=== PATIENT | female | born 1995 | race Caucasian/White ===

== ENCOUNTER 2017-01-30 10:53 | Inpatient (IN) | payer OTHER ==
[2017-01-30 12:14] LABS: Hematocrit 38 % (35-47); Hemoglobin 12.8 g/dl (12.0-16.0); Mean Corpuscular HGB Conc 33 g/dl (31-36); Mean Corpuscular Hemoglobin 29 pg (27-31); Mean Corpuscular Volume 86 fL (80-97); Mean Platelet Volume 9 um3 (7.4-10.4); Red Blood Count 4.47 10^6/ul (4.0-5.4); Red Cell Distribution Width 12 % (10.5-15); White Blood Count 7.5 10^3/ul (3.5-10.8)
[2017-01-30 12:16] LABS: Urine Bilirubin Negative (Negative); Urine Glucose Negative (Negative); Urine Nitrite Negative (Negative)
[2017-01-30 12:25] LABS: ALT 8 U/L (7-52); AST 15 U/L (13-39); Albumin 4.1 g/dL (3.2-5.2); Alkaline Phosphatase 41 U/L (34-104); Anion Gap 4 mmol/L (2-11); BUN/Creatinine Ratio 17.4 (8-20); Blood Urea Nitrogen 12 mg/dL (6-24); CO2 Carbon Dioxide 27 mmol/L (22-32); Calcium 9.3 mg/dL (8.6-10.3); Chloride 105 mmol/L (101-111); EGFR African American 138.1 (>60); EGFR Non-African American 107.4 (>60); Globulin 2.6 g/dL (2-4); Glucose 94 mg/dL (70-100); Potassium 3.8 mmol/L (3.5-5.0); Sodium 136 mmol/L (133-145); Total Protein 6.7 g/dL (6.4-8.9)
[2017-01-30 12:30] LABS: Benzodiazepine Urine Screen None Detected (None Detect)
[2017-01-30 12:45] LABS: Acetaminophen < 15 mcg/mL; Alcohol < 10 mg/dL (<10); Salicylate < 2.50 mg/dL (<30)
[2017-01-30 12:53] LABS: TSH (Thyroid Stimulating Horm) 1.07 mcIU/mL (0.34-5.60)
--- NOTE | 2017-01-31 16:49 | HP ---
DATE OF ADMISSION: 01/30/2017. DATE OF EVALUATION: 01/31/2017. IDENTIFICATION: Ms. 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 HISTORY OF PRESENT ILLNESS: Information was obtained by interview of the patient and review of the electronic medical record. Jason reports that she has had depressive illness with suicidal ideation since the fifth grade and almost every day of her life has thought about suicide. She had on a walk-in meeting with providers at [facility] stated suicidal ideation to jump from a bridge, prompting being brought in on a 941 basis for evaluation in the emergency department. She was deemed as in need of psychiatric hospitalization for safety, assessment and treatment and has been admitted on an involuntary 939 status. She had been having suicidal thoughts of walking into traffic. She tells me that just a short time ago, perhaps a couple of weeks, she had climbed down from a bridge into oncoming traffic on a busy road [place] highway that goes from the [facility] to the [place] and had been walking through traffic and could have been killed by her actions. She was not discovered and she did not come in for care on that occasion. She has been under the care of counselor Gavi Hill at [facility], but has not seen Gavi since August. She had been on Lamictal 100 mg daily on prescription from her psychiatrist in [place], [place], Dr. Pantera Koehler. She has lapsed from taking Lamictal for over a week however, so will not be resuming that dose here out of concern for rash. She reports past trials of Prozac, Lexapro, Wellbutrin, Zoloft, Lamictal, and Effexor. She reports that Effexor and Lexapro did not help, that she got a rash from Wellbutrin, that she had serotonin symptom at 100 mg dosing of Zoloft , and that she got the shakes at about a 40 mg dose of the Prozac. Jason is not very hopeful for deriving any benefit from her stay here. During her evaluation yesterday in the flex space, she stated that she felt she just needed to go home and did not think that it was helpful to be here and that two days was not going to help how she was feeling, apparently referencing roughly the length of stay for her last hospitalization here. She had stated that she felt like she might need something long-term and that her parents were looking into a more long-term placement for her down near [facility]. She has stated that it is her plan to withdraw from school and to pursue treatment for her mental illness. She does hope to return to [place] after she is feeling better. On review of symptoms of depression, the patient reports "I'm very sad, but I feel fine." She does endorse depression and anhedonia, feelings of worthlessness and guilt. She reports that her sleep has been okay, has improved a bit this semester to about five hours per night now, had been less than that previously. She reports that her energy is "kind of in flux." She reports that it will go in about four day cycles, but does not covary with hours of sleep. She reports no change in her appetite or weight. She reports that her concentration and decision making are "horrible." She endorses feeling more hopeless than hopeful. She reports "I feel like I should right now" when asked about suicidal ideation. She denies any history of euphoria or irritability with talking fast, racing thoughts, distractibility, or other symptoms of roberto. She reports anxiety, four or five out of ten on most days with panic attacks occurring once every few weeks, lasting about an hour, with shortness of breath, being flushed, red hands and lips, feeling a catch in her throat, and feeling like she might go crazy. She denies ever any history of trauma. She denies any history of obsessive or compulsive disorder symptoms besides about two to three times sometimes having to check that a door is locked, that she has her keys, that the lights are off, that sort of thing, but not severely disruptive of her usual behaviors. She denies any history of psychosis. MENTAL STATUS EXAMINATION: This is a young woman with adequate grooming and hygiene, who makes good eye contact and has speech of regular rate, rhythm and volume. She is well-related and well-engaged in the interview. She reports her mood as "very sad, but I feel fine." She does look a bit down, but not severely depressed judging by her affect. She denies any auditory or visual hallucinations or paranoid ideation now or ever before. She denies currently any suicidal ideation with intent or plan, but does report having daily thoughts about suicide. She denies ever any homicidal ideation. Her insight and judgment are fair. Her impulse control is intact. She shows no gross deficits of memory, cognition or attention and does appear to be of above average intelligence as evidenced by her enrollment in the student body at [employer]3]. PAST PSYCHIATRIC HISTORY: The patient reports that her only prior psychiatric hospitalization was here last year. She reports that she has not been following up with care since August with her therapist Gavi Hill at [facility], but had been seeing Gavi for about a year before that. She reports that her current psychiatric prescriber is Dr. Pantera Koehler of [place], [place]. She feels good about the work that she does with him, feels like he is a competent provider. She reports historical diagnoses of major depressive disorder, generalized anxiety disorder, ADHD, and bipolar affective disorder. Medication trials were reviewed above in the history of present illness. She does report a single prior suicide attempt in high school by overdose. She feels like this was not a serious attempt, that she only took a few medications , vomited them up and was not at great risk of dying from what she did. She reports that her episode cutting herself earlier at about the age of 14, reported elsewhere in the EMR as a suicide attempt, was not with intent to , but was just an instance of self-harm for its own sake. She reported to me that she has been cutting herself up until about a week ago, when she did it with a razor. Elsewhere in the EMR it is reported that she cut herself on the day prior to admission. PAST MEDICAL HISTORY: Denies any. Denies any history of seizures, syncopal episodes or cardiac problems. She does report a concussion at the age of [age] when she was knocked over by the family's Labrador Retriever. Last menstrual period was about three weeks ago. She does not use a control method as she does not have sex with men, hence she also does not believe that she could possibly be . PAST SURGICAL HISTORY: Denies any. MEDICATIONS AT ADMISSION: 1. Lamictal 100 mg daily, but has not been compliant with this medication for over 1 week. 2. Adderall 20 mg daily. ALLERGIES: RASH TO WELLBUTRIN, PENICILLIN RASH. FAMILY PSYCHIATRIC HISTORY: The patient reports that her mother has anxiety and the patient believes that her mother also has bipolar affective disorder. She has a sister who has been diagnosed with bipolar affective disorder and has attempted suicide by overdose. She reports that there are other members of the family with depression, anxiety, and alcohol abuse issues. SUBSTANCE ABUSE HISTORY: The patient denies any abuse of alcohol, only drinking socially, at most perhaps five drinks on a very wild night in a social setting. She reports using marijuana occasionally, perhaps once a week. She denies any abuse of any other illicit substances. Explicitly denies any abuse of cocaine, heroin, methamphetamine, mushrooms, or LSD. She denies ever any abuse of drugs through an IV route or any abuse of drugs by inhalation. She denies any abuse of either over- the-counter or prescription medications. She reports that she does not drink much caffeine, that today was kind of a heavy drinking day with two cups of coffee. She is not a smoker of tobacco. SOCIAL HISTORY: The patient grew up all over the country and the [place] as part of a family. Her father is a Dental Hygiene Professor in the [employer] working in [place]. She has been in [facility], [place], and [place], [place]. She met all her developmental milestones. She did well in school. Her parents are together. She has a younger brother and sister. She identifies as lesbian. LEGAL HISTORY: Denies any. HISTORY OF VIOLENCE: Denies any. PHYSICAL EXAMINATION The patient was examined in the emergency department. All organ systems were found to be within normal limits aside from abrasions on the left thigh and arm from her self-cutting. She denied to them any active symptoms. On my review of symptoms, she denies any chest pain, shortness of breath, nausea, vomiting, constipation, diarrhea, pain, rash, dizziness, or blurred vision. She denies having any other symptoms I have not asked about. Given her negative review of symptoms and her normal physical examination in the emergency department, it is reasonable of her to decline repeat physical examination as she has done and so I will not re-examine her per her request. VITAL SIGNS: Temperature 98.9, pulse 82, respiratory rate 16, saturating 100 percent oxygen on room air with a blood pressure of 114/65. LABORATORY VALUES: CBC with differential entirely within normal limits aside from one single excursion of lymphocyte percentage down to a low value at 23.1. Comprehensive metabolic panel entirely within normal limits with a negative test. Urinalysis entirely normal and toxicology screen detecting only cannabinoids. No other substances found in urine or serum. ASSESSMENT AND PLAN: Jason is a 21-year-old woman who has been admitted psychiatrically once before to this unit, and that is her only prior psychiatric admission. She comes to us on this occasion with report of ongoing suicidal ideation and is seeking referral through help from her family into longer term care in a facility nearer to her home in [facility]. She has agreed to a trial of Cymbalta, stating that this had been the plan of her psychiatrist in [place] should she fail the Lamictal. We will start Cymbalta 30 mg. We will be gathering collateral from Dr. Koehler and others who have been providing care to her and from her family. We will be encouraging her to make use of the therapeutic milieu and groups and notably I did ask her to leave a group to come to meet with me for the intake interview. Aftercare may well be referral to a long-term program as per her stated a preference. DIAGNOSES: Major depressive disorder, recurrent, severe, without psychotic features; generalized anxiety disorder; historical diagnosis of ADHD; rule out bipolar affective disorder. [id number]/[facility] #: [id number] MTDSydnee
[2017-02-01] MEDS: DULoxetine DR CAP* 30 MG CAP.DR PO SCH (10:13)
[2017-02-01] MEDS ORDERED: Nicotine Inhaler* 10 MG AMP INH PRN (11:00)
--- NOTE | 2017-02-01 15:28 | PN ---
Subjective - Subjective Service Type: 41963 Hosp care 15 min low complexity Subjective: Jason reports nausea with first dose Cymbalta, but would like to continue in hopes nausea will wane. She reports continued low mood with SI, but is able to laugh about it. She will ask her family to convey their research about programs near [place] to Ms Boles. She requests q30 checks, computer privileges, and staff pass. Other than nausea, she has no physical complaints. Objective - Appearance Appearance: Healthy Appearing Dysmorphic Features: No Hygiene: Normal Grooming: Well Kept - Behavior Psychomotor Activities: Normal Exhibits Abnormal Movement: No - Attitude and Relatedness Attitude and Relatedness: Well Related Eye Contact: Good - Speech Quality: Unpressured Latencies: Normal Quantity: Appropriate - Mood Patient's Decription of Mood: "Sad" - Affect Observed Affect: Fair Affect Consistent with: Dysphoria - mild - Thought Process Patient's Thought Process: Coherent, Goal Directed Thought Content: Yes Passive Wish, Yes Suicidal Planning, No Homicidal Ideation, No Paranoid Ideation - Sensorium Experiencing Hallucinations: No, Sensorium is Clear Type of Hallucinations: Visual: No, Auditory: No, Command: No - Level of Consciousness Level of Consciousness: Alert Orientation: Yes Intact, Yes Orientated to Time, Yes Orientated to Place, Yes Orientated to Person - Impulse Control Impulse Control: Intact - Insight and Judgement Insight and Judgement: Fair - Group Participation Particating in Group Activities: Yes - Medication Management Medication Management Adherence: Yes Assessment - Assessment Merits Inpatient Hospitalization: For Immediate Safety, For Stabilization, For Discharge Planning, Pending Safe DC Plan Inpatient DSM-IV Dx: Major depressive disorder, recurrent, severe, without psychotic features; generalized anxiety disorder; historical diagnosis of ADHD; rule out bipolar affective disorder. Clinical Impression: Full day 1 on unit, 3..17: Jason is a 21-year-old woman who has been admitted psychiatrically once before to this unit, and that is her only prior psychiatric admission. She comes to us on this occasion with report of ongoing suicidal ideation and is seeking referral through help from her family into longer term care in a facility nearer to her home in [facility]. She has agreed to a trial of Cymbalta, stating that this had been the plan of her psychiatrist in [place] should she fail the Lamictal. We will start Cymbalta 30 mg. We will be gathering collateral from Dr. Koehler and others who have been providing care to her and from her family. We will be encouraging her to make use of the therapeutic milieu and groups and notably I did ask her to leave a group to come to meet with me for the intake interview. Aftercare may well be referral to a long- term program as per her stated a preference. Day 2, 02.01.17: Continued symptomatic. Await word from parents re treatment options near them. Plan - Plan Treatment Plan: Name: JASON MCKEON Birthdate: 1995 [id number] Continue Cymbalta 30 mg. Encourage groups, milieu. Gather collateral. Medications: Current Medications Duloxetine HCl (Cymbalta Cap*) 30 mg PO DAILY TAMARA Last Admin: 02/01/17 10:13 Dose: 30 mg Nicotine (Nicotine Inhaler*) 10 mg INH Q2H PRN PRN Reason: CRAVING - Discharge Plan Discharge Plan: Consider Longer Term Tx
[2017-02-02] MEDS: DULoxetine DR CAP* 30 MG CAP.DR PO SCH (09:22)
--- NOTE | 2017-02-02 14:59 | PN ---
Subjective - Subjective Service Type: 35326 Hosp care 15 min low complexity Objective - Appearance Appearance: Healthy Appearing Dysmorphic Features: No Hygiene: Normal Grooming: Well Kept - Behavior Psychomotor Activities: Normal - Attitude and Relatedness Attitude and Relatedness: Cooperative Eye Contact: Fair - Speech Quality: Unpressured Latencies: Normal Quantity: Appropriate - Mood Patient's Decription of Mood: "Sad" - Affect Observed Affect: Depressed Affect Consistent with: Dysphoria - Thought Process Patient's Thought Process: Coherent, Goal Directed Thought Content: Yes Passive Wish, No Suicidal Planning, No Homicidal Ideation, No Paranoid Ideation - Sensorium Experiencing Hallucinations: No, Sensorium is Clear Type of Hallucinations: Visual: No, Auditory: No, Command: No - Level of Consciousness Level of Consciousness: Alert Orientation: Yes Intact, Yes Orientated to Time, Yes Orientated to Place, Yes Orientated to Person - Impulse Control Impulse Control: Intact - Insight and Judgement Insight and Judgement: Fair - Group Participation Particating in Group Activities: Yes - Medication Management Medication Management Adherence: Yes Assessment - Assessment Merits Inpatient Hospitalization: For Immediate Safety, For Stabilization, To Initiate Treatment, For Discharge Planning, Pending Safe DC Plan Inpatient DSM-IV Dx: Major depressive disorder, recurrent, severe, without psychotic features; generalized anxiety disorder; historical diagnosis of ADHD; rule out bipolar affective disorder. Clinical Impression: Full day 1 on unit, 01.31.17: Jason is a 21-year-old woman who has been admitted psychiatrically once before to this unit, and that is her only prior psychiatric admission. She comes to us on this occasion with report of ongoing suicidal ideation and is seeking referral through help from her family into longer term care in a facility nearer to her home in [facility]. She has agreed to a trial of Cymbalta, stating that this had been the plan of her psychiatrist in [place] should she fail the Lamictal. We will start Cymbalta 30 mg. We will be gathering collateral from Dr. Koehler and others who have been providing care to her and from her family. We will be encouraging her to make use of the therapeutic milieu and groups and notably I did ask her to leave a group to come to meet with me for the intake interview. Aftercare may well be referral to a long- term program as per her stated a preference. Day 2, 17: Continued symptomatic. Await word from parents re treatment options near them. Day 3, 02.02.17: Dr Koehler reports he is disappointed she did not stick with the Lamictal, as he feels antidepressant treamtnt options have been exhausted. He feels [facility] and TMS (with a different agency) in [facility], fundable by her insurance, might be a reasonable next step of care. Awaiting coordination with her parents about this treatment option. She remains chronically depressed and suicidal. Plan - Plan Treatment Plan: Name: JASON MCKEON Birthdate: 1995 [id number] Continue Cymbalta 30 mg. Encourage groups, milieu. Gather collateral and discuss disposition options with her parents. Medications: Current Medications Duloxetine HCl (Cymbalta Cap*) 30 mg PO DAILY TAMARA Last Admin: 02/02/17 09:22 Dose: 30 mg Nicotine (Nicotine Inhaler*) 10 mg INH Q2H PRN PRN Reason: CRAVING - Discharge Plan Discharge Plan: Outpatient Follow Up - in IOP
[2017-02-03] MEDS: DULoxetine DR CAP* 30 MG CAP.DR PO SCH (09:01)
--- NOTE | 2017-02-03 09:19 | ED ---
Ama Eduardo Alok, scribed for Alis Ordaz MD on 01/30/17 at 1226 . Psychiatric Complaint - HPI Summary HPI Summary: 21 y/o female presents to the ED with c/o stress and depression while at school. Pt states she has had depression for the last year but has worsened for the last 6 days PMHX includes depression, ADHD, and anxiety. Pt takes Lamictal for depression. Pt confirms occasional ETOH use but has no other substance abuse issues. Pt states she also has SI with plan as well as a history of self- cutting. - History Of Current Complaint Chief Complaint: EDMentalHealth Time Seen by Provider: 01/30/17 12:01 Hx Obtained From: Patient ?: No Onset/Duration: Gradual Onset, Lasting Weeks, Still Present Timing: Constant Severity Initially: Moderate Severity Currently: Moderate Character: Depressed, Anxious Aggravating Factor(s): Nothing Alleviating Factor(s): Nothing Associated Signs And Symptoms: Positive: Negative Has Suicidal: Reports: Thoughts, With A Plan - Allergies/Home Medications Allergies/Adverse Reactions: Allergies Allergy/AdvReac Type Severity Reaction Status Date / Time Bupropion Allergy Unknown Verified 01/30/17 11:47 [From Wellbutrin XL] Reaction Details Penicillins Allergy Rash Verified 01/30/17 11:46 Home Medications: Home Medications Amphetamine MIXED SALTS TAB* [Adderall TAB*] 10 mg PO DAILY 01/30/17 [History Confirmed 01/30/17] Amphetamine/Dextroamph ER(NF) [Adderal XR (NF)] 20 mg PO DAILY 01/30/17 [ History Confirmed 01/30/17] lamoTRIgine TAB(*) [LaMICtal TAB(*)] 100 mg PO DAILY 01/30/17 [History Confirmed 01/30/17] PMH/Surg Hx/FS Hx/Imm Hx Sensory History: Reports: Hx Contacts or Glasses Opthamlomology History: Reports: Hx Contacts or Glasses Psychiatric History: Reports: Hx Anxiety, Hx Attention Deficit Hyperactivity Disorder, Hx Depression, Hx Community Mental Health Tx Denies: Hx Eating Disorder, Hx of Violent Episodes Against Others Infectious Disease History: No Infectious Disease History: Denies: Traveled Outside the [place] in Last 30 Days - Family History Known Family History: Positive: Other - No - Bipolar disorder - Social History Occupation: Student Alcohol Use: None Substance Use Type: Reports: Marijuana Substance Use Comment - Amount & Last Used: tested positive for cannibinoids Smoking Status (MU): Never Smoked Tobacco Review of Systems Negative: Fever Positive: Anxious, Depressed All Other Systems Reviewed And Are Negative: Yes Physical Exam Triage Information Reviewed: Yes Vital Signs On Initial Exam: Initial Vitals Temp Pulse Resp BP Pulse Ox 99.5 F 80 20 115/67 100 01/30/17 11:25 01/30/17 11:25 01/30/17 11:25 01/30/17 11:25 01/30/17 11:25 Vital Signs Reviewed: Yes Appearance: Positive: Well-Appearing, No Pain Distress Skin: Positive: Warm, Skin Color Reflects Adequate Perfusion, Dry, Other - Abrasions Left Arm and Left Inner Thigh Eyes: Positive: EOMI, ROSSANA ENT: Positive: Pharynx normal, TMs normal Neck: Positive: Supple, Nontender Respiratory/Lung Sounds: Positive: Clear to Auscultation, Breath Sounds Present. Negative: Rales, Rhonchi, Wheezes Cardiovascular: Positive: RRR. Negative: Murmur, Rub, Other - Gallops Abdomen Description: Positive: Nontender, Soft Bowel Sounds: Positive: Present Musculoskeletal: Positive: Strength/ROM Intact. Negative: Edema Left, Edema Right Neurological: Positive: Sensory/Motor Intact, Alert, Oriented to Person Place, Time, CN Intact II-III Psychiatric: Positive: Affect/Mood Appropriate Diagnostics - Vital Signs Vital Signs Temp Pulse Resp BP Pulse Ox 01/30/17 11:25 99.5 F 80 20 115/67 100 - Laboratory Lab Results: Lab Results 01/30/17 Range/Units 11:39 WBC 7.5 (3.5-10.8) 10^3/ul RBC 4.47 (4.0-5.4) 10^6/ul Hgb 12.8 (12.0-16.0) g/dl Hct 38 (35-47) % MCV 86 (80-97) fL MCH 29 (27-31) pg MCHC 33 (31-36) g/dl RDW 12 (10.5-15) % Plt Count 322 (150-450) 10^3/ul MPV 9 (7.4-10.4) um3 Neut % (Auto) 68.9 (38-83) % Lymph % (Auto) 23.1 L (25-47) % [place] % (Auto) 6.8 (1-9) % Eos % (Auto) 0.8 (0-6) % Baso % (Auto) 0.4 (0-2) % Absolute Neuts (auto) 5.1 (1.5-7.7) 10^3/ul Absolute Lymphs (auto) 1.7 (1.0-4.8) 10^3/ul Absolute Monos (auto) 0.5 (0-0.8) 10^3/ul Absolute Eos (auto) 0.1 (0-0.6) 10^3/ul Absolute Basos (auto) 0 (0-0.2) 10^3/ul Absolute Nucleated RBC 0 10^3/ul Nucleated RBC % 0 Result Diagrams: 01/30/17 11:39 01/30/17 11:39 Lab Statement: Any lab studies that have been ordered have been reviewed, and results considered in the medical decision making process. Course/Dx - Differential Dx/Clinical Impression Provider Diagnosis: Major depressive disorder, severe Discharge - Discharge Plan Condition: Stable Disposition: ADMITTED TO [facility] documentation as recorded by the Ama chávez Alok accurately reflects the service I personally performed and the decisions made by , Alis Ordaz MD.
--- NOTE | 2017-02-03 14:10 | PN ---
[facility]: Group Therapy Note - Service Type Service Type: 07433 Group Psychotherapy - Cognitive Behavioral Group Therapy ( CBT):Patient was attentive and participatory in CBT programming this morning, and remained in good behavioral control. Patient expressed positive insights regarding relevant treatment interventions and goals.
--- NOTE | 2017-02-03 16:51 | PN ---
Subjective - Subjective Service Type: 86053 Hosp care 15 min low complexity Subjective: Jason reports continued depression and SI. She is looking forward to discharge either extended care at a unit connected with [facility], or a program in [facility]. She reports worsened symptoms of depression around this time of onset of menses. She reports sleeping poorly due to activities of her roommates at night. Objective - Appearance Appearance: Healthy Appearing Dysmorphic Features: No Hygiene: Normal Grooming: Well Kept - Behavior Psychomotor Activities: Normal Exhibits Abnormal Movement: No - Attitude and Relatedness Attitude and Relatedness: Well Related Eye Contact: Good - Speech Quality: Unpressured Latencies: Normal Quantity: Appropriate - Mood Patient's Decription of Mood: "Okay" - Affect Observed Affect: Depressed Affect Consistent with: Dysphoria - Thought Process Patient's Thought Process: Coherent, Goal Directed Thought Content: Yes Passive Wish, Yes Suicidal Planning, No Homicidal Ideation, No Paranoid Ideation - Sensorium Experiencing Hallucinations: No, Sensorium is Clear Type of Hallucinations: Visual: No, Auditory: No, Command: No - Level of Consciousness Level of Consciousness: Alert Orientation: Yes Intact, Yes Orientated to Time, Yes Orientated to Place, Yes Orientated to Person - Impulse Control Impulse Control: Intact - Insight and Judgement Insight and Judgement: Good - Group Participation Particating in Group Activities: Yes - Medication Management Medication Management Adherence: Yes Assessment - Assessment Merits Inpatient Hospitalization: For Immediate Safety, For Stabilization, For Discharge Planning, Pending Safe DC Plan Inpatient DSM-IV Dx: Major depressive disorder, recurrent, severe, without psychotic features; generalized anxiety disorder; historical diagnosis of ADHD; rule out bipolar affective disorder. Clinical Impression: Full day 1 on unit, 3..17: Jason is a 21-year-old woman who has been admitted psychiatrically once before to this unit, and that is her only prior psychiatric admission. She comes to us on this occasion with report of ongoing suicidal ideation and is seeking referral through help from her family into longer term care in a facility nearer to her home in [facility]. She has agreed to a trial of Cymbalta, stating that this had been the plan of her psychiatrist in [place] should she fail the Lamictal. We will start Cymbalta 30 mg. We will be gathering collateral from Dr. Koehler and others who have been providing care to her and from her family. We will be encouraging her to make use of the therapeutic milieu and groups and notably I did ask her to leave a group to come to meet with me for the intake interview. Aftercare may well be referral to a long- term program as per her stated a preference. Day 2, 02.01.17: Continued symptomatic. Await word from parents re treatment options near them. Day 3, 02.02.17: Dr Koehler reports he is disappointed she did not stick with the Lamictal, as he feels antidepressant treamtnt options have been exhausted. He feels [facility] and TMS (with a different agency) in [facility], fundable by her insurance, might be a reasonable next step of care. Awaiting coordination with her parents about this treatment option. She remains chronically depressed and suicidal. Day 4, 02.03.17: Jason reports increased depressive symptoms, as has been the pattern for her with onset of menses. She is looking forward to transfer to programs offering extended stay and alternate treatments (perhaps ECT or TMS). She continues to have some nausea related to Cymbalta, but would like an increased dose against depressive symptoms. Plan - Plan Treatment Plan: Name: JASON MCKEON Birthdate: 1995 [id number] Continue Cymbalta at dose increased to 40 mg. Encourage groups, milieu. Gather collateral and discuss disposition options with her parents. Medications: Current Medications Duloxetine HCl (Cymbalta Cap*) 30 mg PO DAILY TAMARA Last Admin: 02/03/17 09:01 Dose: 30 mg Nicotine (Nicotine Inhaler*) 10 mg INH Q2H PRN PRN Reason: CRAVING - Discharge Plan Discharge Plan: Inpatient Hospitalization - at [facility] versus [facility] in [facility]
[2017-02-03] MEDS ORDERED: Ibuprofen TAB* 600 MG PO PRN (17:14)
[2017-02-03] MEDS: DULoxetine DR CAP* 20 MG CAP.DR PO SCH (18:19)
[2017-02-03] MEDS: traZODone TAB* 50 MG TAB PO SCH (22:21)
[2017-02-04] MEDS: DULoxetine DR CAP* 20 MG CAP.DR PO SCH (09:32)
--- NOTE | 2017-02-04 10:58 | PN ---
Subjective - Subjective Service Type: 49993 Hosp care 15 min low complexity Subjective: Jason reports doing "Better," with an okay unit experience here, and reduced distress levels. She affirms she is currently safe, and is forward thinking, committed to a plan for further hospital/residential care after discharge from [facility]. She notes possible stomach upset with Cymbalta - she remains interested in a trial, but we agreed not to advance does as planned today to give her more time to adjust. Objective - Appearance Appearance: Healthy Appearing Hygiene: Normal Grooming: Well Kept - Behavior Psychomotor Activities: Normal - Attitude and Relatedness Attitude and Relatedness: Cooperative Eye Contact: Good - Speech Quality: Unpressured Latencies: Normal Quantity: Appropriate - Mood Patient's Decription of Mood: "Okay" - Affect Observed Affect: Non-labile Affect Consistent with: Euthymia - Thought Process Patient's Thought Process: Coherent, Goal Directed Thought Content: No Passive Wish, No Suicidal Planning, No Homicidal Ideation, No Paranoid Ideation - Sensorium Experiencing Hallucinations: No, Sensorium is Clear - Level of Consciousness Level of Consciousness: Alert - Impulse Control Impulse Control: Intact - Insight and Judgement Insight and Judgement: Fair Assessment - Assessment Merits Inpatient Hospitalization: To Initiate Treatment, For Ongoing Evaluation , Consolidate Improvements, For Discharge Planning Inpatient DSM-IV Dx: Mood disorder. 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 She was admitted from the ED, after referral from [facility], where she presented requesting help with taking leave from school. Concern centered on active suicidal ideation. Stabilizing here. At lower apparent distress levels, free of active suicidal ideation, safe on checks. Medmgt. is with new Cymbalta trial - having recently stopped Lamictal, and avoiding stimulant use. Plan - Plan Treatment Plan: Name: JASON MCKEON Birthdate: 1995 [id number] Continued Medication Management: Start Medication Medications: Current Medications Duloxetine HCl (Cymbalta Cap*) 40 mg PO DAILY TAMARA Last Admin: 02/04/17 09:32 Dose: Not Given Ibuprofen (Motrin Tab*) 600 mg PO Q6H PRN PRN Reason: PAIN Nicotine (Nicotine Inhaler*) 10 mg INH Q2H PRN PRN Reason: CRAVING Trazodone HCl (Desyrel Tab*) 50 mg PO BEDTIME TAMARA Last Admin: 02/03/17 22:21 Dose: 50 mg - Discharge Plan Discharge Plan: Outpatient Follow Up
[2017-02-04] MEDS: DULoxetine DR CAP* 30 MG CAP.DR PO SCH (11:05)
[2017-02-04] MEDS: traZODone TAB* 50 MG TAB PO SCH (22:27)
[2017-02-05] MEDS: DULoxetine DR CAP* 30 MG CAP.DR PO SCH (08:54)
[2017-02-05] MEDS: traZODone TAB* 50 MG TAB PO SCH (22:27)
[2017-02-06 08:09] VITALS: BP 127/52
[2017-02-06] MEDS: DULoxetine DR CAP* 30 MG CAP.DR PO SCH (09:14)
--- NOTE | 2017-02-06 12:34 | DS ---
Subjective - Subjective Service Types: 40301 Hosp [place] Day Mgmt simple under 30 min Discharge Date: 02/06/17 Subjective: Jason expressed satisfaction with her progress here and asked for her release today. Her mother (by phone) supported it. She notes further progress and denies setbacks - says mood symptoms are progressively milder and easily tolerable. Denies distress or un-manageable anxiety. She denies side effects. We reviewed her regimen and she is interested in continuing Cymbalta. We discussed aftercare plan - she is planning to see her therapist and psychiatrist at home, and said she sees no barriers to basic support, routine care, or emergency help if needed. Objective - Appearance Appearance: Healthy Appearing Hygiene: Normal Grooming: Well Kept - Behavior Psychomotor Activities: Normal - Attitude and Relatedness Attitude and Relatedness: Cooperative Eye Contact: Good - Speech Quality: Unpressured Latencies: Normal Quantity: Appropriate - Mood Patient's Decription of Mood: "Fine" - Affect Observed Affect: Non-labile Affect Consistent with: Euthymia - Thought Process Patient's Thought Process: Coherent, Goal Directed Thought Content: No Passive Wish, No Suicidal Planning, No Homicidal Ideation, No Paranoid Ideation - Sensorium Experiencing Hallucinations: No, Sensorium is Clear - Level of Consciousness Level of Consciousness: Alert - Impulse Control Impulse Control: Intact - Insight and Judgement Insight and Judgement: Good Treatment Course & Assessment Clinical Course & Impression: 21 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 She was admitted from the ED, after referral from [facility], where she presented requesting help with taking leave from school. Concern centered on active suicidal ideation. 02/06/17 Clear for release. Jason stabilized here. Clincally she improved, with milder symptoms, and sustained absence of active suicidal ideation. She noted, and was observed to have lower distress levels. She was safe on checks, cooperative with evaluations and routines, and participated in programming. Medication management is with new Cymbalta trial - she recently stopped Lamictal. And we avoided stimulant use. At this time symptoms are mild and not impairing, and hospital retention over Jason's capable request for release is not justified. She has collaborated in developing an appropriate followup plan tailored to her circumstances and needs. Jason is at chronically elevated senior living risk for suicide based on her condition and historic suicidal behavior (overdose in high school, recent high risk walking in traffic). At this time, acute risk is reduced from at admission , and assessed as low based on Jason's low symptom burden, interruption of crisis / engagement of support, her absence of impairment, and her benign observed behavior and ideation. Clear for Discharge: Adequate Clinical Respons, Acceptable Safety Profile, Low Utility of Inpt Care Inpatient DSM-IV Dx: Mood disorder. Anxiety disorder Discharge Planning - Discharge Planning Discharge Plan: Outpatient Follow Up Outpatient Program: Private Clinician(s) Recommendations for Continuing Care: Medication Management, Psychotherapy Medications: Current Medications Duloxetine HCl (Cymbalta Cap*) 30 mg PO DAILY TAMARA Last Admin: 02/06/17 09:14 Dose: 30 mg Discharge Planning: Prescriptions provided for discharge [x] Yes Cymbalta Follow up care details as per social work arrangements. Patient response to discharge plan: [x] eager for discharge [] agreeable with discharge plan [] ambivalent about discharge [] disagrees with discharge today
== END 2017-02-06 16:10 | disposition home or self-care (01) | DRG 885 ==
LOC: ED 10:53 → BSU 21:46
PROVIDERS: ADMIT Psychiatry & Neurology Psychiatry; ATTEND Psychiatry & Neurology Psychiatry
DX: F39 Unspecified mood [affective] disorder (principal); R45.851 Suicidal ideations; F41.9 Anxiety disorder, unspecified; Z79.899 Other long term (current) drug therapy; Z88.0 Allergy status to penicillin; Z88.8 Allergy status to other drugs, medicaments and biological substances; Z81.8 Family history of other mental and behavioral disorders
CPT/HCPCS: 36415; 80053; 80307; 80320; 80329; 81003; 84443; 84702; 85025; 90853; 99222; 99231; 99238; A9270-GY; G0480

== ENCOUNTER 2018-05-29 12:52 | Emergency (ER) | payer OTHER ==
[2018-05-29 13:12] VITALS: BP 133/80
[2018-05-29] MEDS ORDERED: Acetaminophen TAB* 325 MG PO ONE (14:48)
--- NOTE | 2018-05-29 14:51 | UC ---
Head Injury HPI - HPI Summary HPI Summary: This is leve Julissa Odom documenting for attending Dr. Manuela Engel MD. This patient is a 22 year old F presenting to [facility] with a chief complaint of head injury that occurred at 12:00 today. The patient reports that she fell on a wet floor at work and hit the back left side of her head. Patient denies any loss of consciousness or memory loss. The patient rates the pain 3/10 in severity. Symptoms aggravated by movement of her head. Symptoms alleviated by nothing. Patient reports difficulty focusing, headache, eye pressure, and lightheadedness. Patient denies light sensitivity, vomiting, or any bleeding from her eyes, ears or nose. Patient reports that she has previously had a concussion when she was a child. The patient notes that she takes Adderall, Omepraxole and allergy medications. - History Of Current Complaint Chief Complaint: UCHeadInjury Stated Complaint: HEAD INJURY Time Seen by Provider: 05/29/18 14:39 Hx Obtained From: Patient Hx Last Menstrual Period: April 27, 2018 Onset/Duration: Sudden Onset, Lasting Hours, Still Present Severity Currently: Mild Severity Initially: Mild Pain Intensity: 3 Pain Scale Used: 0-10 Numeric Aggravating Factor(s): Other - head movement Alleviating Factor(s): Nothing Associated Signs And Symptoms: Negative: LOC (Time In Secs./Mins/Hrs), Memory Loss, Epistaxis, Vomiting - Allergies/Home Medications Allergies/Adverse Reactions: Allergies Allergy/AdvReac Type Severity Reaction Status Date / Time bupropion [From Wellbutrin] Allergy Unknown Verified 05/29/18 13:13 Reaction Details Penicillins Allergy Rash Verified 05/29/18 13:13 risperidone [From Risperdal] Allergy Numbness Verified 05/29/18 13:15 Home Medications: Home Medications Dextroamphetamine/Amphetamine [Adderall Xr 15 mg Capsule] 05/29/18 [History] Loratadine [Allerclear] 10 mg PO 05/29/18 [History] Omeprazole 05/29/18 [History] PMH/Surg Hx/FS Hx/Imm Hx Other Respiratory History: allergies GI/ History: Gastroesophageal Reflux Other GI/ History: GERD - Surgical History Surgical History: None - Family History Known Family History: Positive: None - patient denies FHx, Other - No - Bipolar disorder - Social History 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 Lives: Dormitory/Roommates Alcohol Use: Weekly Substance Use Type: Marijuana Substance Use Comment - Amount & Last Used: tested positive for cannibinoids Smoking Status (MU): Never Smoked Tobacco - Immunization History Most Recent Influenza Vaccination: not this season Most Recent Tetanus Shot: current Most Recent Pneumonia Vaccination: n/a Review of Systems Constitutional: Negative - negative fever Eyes: Negative - negative photophobia, Other - eye pressure Gastrointestinal: Negative - negative vomiting Neurological: Headache, Other - difficulty focusing All Other Systems Reviewed And Are Negative: Yes Physical Exam Vital Signs: Initial Vital Signs Temp 98.2 F 05/29/18 13:06 Pulse 62 05/29/18 13:06 Resp 16 05/29/18 13:06 BP 133/80 05/29/18 13:06 Pulse Ox 100 05/29/18 13:06 Diagnostics - Radiology CT Brain Xray Interpretation: No Acute Changes - Impression: negative examination. Dr. Engel has reviewed this report. Radiology Interpretation Completed By: Radiologist Discharge - Discharge Plan Condition: Stable Disposition: HOME Patient Education Materials: Head Injury (ED), Scalp Contusion in Adults (ED) Referrals: [facility] [Outside] Additional Instructions: - apply ice (Wrapped in a towel) 20 minutes at a time, 2-3 times a day - Okay to alternate ibuprofen (Advil, Motrin)600mg and Tylenol 1000mg every 3 hours for pain. Take with food. Do NOT take for more than 4-5 days. - get plenty of restful sleep avoid strenous exercise until you are feeling back to baseline. It is recommeded you avoid all alcohol until you are feeling back to your baseline health - contact your doctor to schedule a follow-up appointment. contact your doctor or return with questions or concerns
--- NOTE | 2018-05-29 15:11 | RAD ---
INDICATION: Intracranial injury COMPARISON: None TECHNIQUE: Noncontrast axial source images were acquired from the skull base to the vertex. FINDINGS: Ventricles/sulci: The ventricles and cisterns are normal in size and configuration for age. Brain parenchyma: There is no focal parenchymal finding, evidence of intracranial mass, or intracranial mass effect. Intracranial hemorrhage:None. Extra-axial spaces: There are no abnormal extra axial fluid collections or evidence of extra-axial mass. Calvarium: There is no calvarial fracture or other calvarial abnormality. Scalp: There is no evidence of scalp or extracalvarial soft tissue abnormality. Paranasal sinuses/mastoid: The paranasal sinuses and mastoid air cells are clear. Other: None. IMPRESSION: NEGATIVE EXAMINATION
== END 2018-05-29 15:30 | disposition home or self-care (01) ==
LOC: UCEAST 12:52
DX: S09.90XA Unspecified injury of head, initial encounter (principal); K21.9 Gastro-esophageal reflux disease without esophagitis; Z88.0 Allergy status to penicillin; Z88.8 Allergy status to other drugs, medicaments and biological substances; Z79.899 Other long term (current) drug therapy; W19.XXXA Unspecified fall, initial encounter; Y92.9 Unspecified place or not applicable; Y99.0 Civilian activity done for income or pay
CPT/HCPCS: 70450; 99212; A9270-GY; G0463

== ENCOUNTER 2024-03-27 08:51 | Observation (INO) ==
[2024-03-27] MEDS: Lactated Ringers 1000 ml BAG 1,000 ML IV ONE (12:16)
[2024-03-27] MEDS: Metoclopramide 5 MG/ML VIAL (10 mg) IV ONE (12:22)
[2024-03-27 12:56] LABS: ALT 9 U/L (7-52); AST 11 U/L (13-39); Albumin 4.2 g/dL (3.2-5.2); Albumin/Globulin Ratio 1.6 (1-3); Alkaline Phosphatase 58 U/L (35-149); Anion Gap 7 mmol/L (2-16); Blood Urea Nitrogen 9 mg/dL (6-24); CO2 Carbon Dioxide 27 mmol/L (22-32); Calcium 9.7 mg/dL (8.6-10.3); Chloride 104 mmol/L (101-111); Creatinine, Serum 0.65 mg/dL (0.51-0.95); Globulin 2.6 g/dL (2-4); Glucose 88 mg/dL (70-100); Magnesium 1.9 mg/dL (1.9-2.7); Potassium 4.2 mmol/L (3.5-5.0); Sodium 138 mmol/L (135-145); Total Bilirubin 0.2 mg/dL (0.2-1.0); Total Protein 6.8 g/dL (6.4-8.9); eGFR CKD-EPI 122.9 (>60)
[2024-03-27 12:59] LABS: ABS Eosinophils 0.2 10^3/uL (0.0-0.5); ABS Lymphocytes 2.4 10^3/uL (1.0-4.8); ABS Monocytes 0.4 10^3/uL (0.0-0.9); ABS Neutrophils 5.5 10^3/uL (1.5-7.6); ABS Nucleated RBC 0.01 10^3/ul; Hematocrit 36.8 % (35-45); Hemoglobin 12.4 g/dL (11.5-14.3); Lymphocyte % 27.8 %; Mean Corpuscular Hgb Conc 33.7 g/dL (31-36); Mean Corpuscular Volume 80.1 fL (80-97); Mean Platelet Volume 8.6 fL (7.5-11.2); Nucleated Red Blood Cells % 0.1 %/100WBC (0.0-0.8); Platelet Count 414 10^3/uL (150-450); Red Blood Count 4.59 10^6/uL (3.63-4.92); White Blood Count 8.6 10^3/uL (3.8-11.8)
[2024-03-27 13:00] LABS: INR 1.01 (0.83-1.13)
[2024-03-27 13:19] LABS: HCG Pregnancy < 0.60 mIU/mL
[2024-03-27 21:21] LABS: TSH Ultra Thyroid Stim Horm 1.85 mcIU/mL (0.34-5.60)
[2024-03-27 21:32] LABS: Folate 7.39 ng/mL (5.90-24.80)
[2024-03-27 21:33] LABS: Vitamin B12 161 pg/mL (180-914)
[2024-03-28 08:17] LABS: ABS Basophils 0.1 10^3/uL (0.0-0.1); ABS Eosinophils 0.2 10^3/uL (0.0-0.5); ABS Lymphocytes 2.4 10^3/uL (1.0-4.8); ABS Monocytes 0.5 10^3/uL (0.0-0.9); ABS Nucleated RBC 0.01 10^3/ul; Hematocrit 39.1 % (35-45); Hemoglobin 13.1 g/dL (11.5-14.3); Lymphocyte % 29.8 %; Mean Corpuscular Hgb Conc 33.6 g/dL (31-36); Mean Corpuscular Volume 80.4 fL (80-97); Mean Platelet Volume 8.4 fL (7.5-11.2); Nucleated Red Blood Cells % 0.1 %/100WBC (0.0-0.8); Platelet Count 422 10^3/uL (150-450); Red Blood Count 4.86 10^6/uL (3.63-4.92); Red Cell Distribution Width 12.8 % (12-17); White Blood Count 8.1 10^3/uL (3.8-11.8)
[2024-03-28 08:53] LABS: Calcium 9.7 mg/dL (8.6-10.3); Creatinine, Serum 0.72 mg/dL (0.51-0.95); Potassium 4.2 mmol/L (3.5-5.0); eGFR CKD-EPI 116.7 (>60)
[2024-03-28] MEDS: Cyanocobalamin INJ 1,000 MCG/ML VIAL 1 ML VIAL IM SCH (09:38)
[2024-03-28] MEDS: Magnesium Sulfate IV 1GM/100ML 1 GM/100 ML BAG IV ONE (09:38)
[2024-03-28] MEDS: [UNRECOGNIZED DRUG - OTHER] PO SCH (09:39)
[2024-03-28] MEDS: NORGESTIMATE ETHINYL ESTRADIOL PO SCH (09:39)
[2024-03-28 14:16] VITALS: BP 149/95
== END 2024-03-28 15:00 | disposition home or self-care (01) ==
LOC: EDHOLD 08:51 → ED 08:51 → SUATTDRO 19:20 → MED 20:46
PROVIDERS: ADMIT Internal Medicine; ATTEND Student in an Organized Health Care Education/Training Program